=== PATIENT | male | born 1950 | race Caucasian/White ===

== ENCOUNTER → 2022-01-11 | Outpatient (CLI) | payer MEDICARE ==
--- NOTE | 2022-01-11 07:49 | XR ---
EXAMINATION TYPE: XR chest 2V DATE OF EXAM: 01/11/2022 COMPARISON: None INDICATION: Deep cough x1 week TECHNIQUE: Frontal and lateral views of the chest are obtained. FINDINGS: The heart size is normal. The pulmonary vasculature is normal. The lungs are clear. IMPRESSION: 1. No acute pulmonary process.
== END | disposition home or self-care (01) ==
LOC: RADXRMAIN 07:28
PROVIDERS: ATTEND Internal Medicine
DX: J06.9 Acute upper respiratory infection, unspecified (principal)
CPT/HCPCS: 71046